=== PATIENT | female | born 2000 | race American Indian/Alaskan Native ===

== ENCOUNTER 2021-05-03 13:51 | Emergency (ER) | payer SELFPAY ==
--- NOTE | 2021-05-03 14:30 | Emergency Department Report ---
ED Male HPI - General Chief complaint: Urogenital-Male Stated complaint: EAR SWELLING - History of Present Illness MD Complaint: penile discharge, dysuria - Related Data Allergies Allergy/AdvReac Type Severity Reaction Status Date / Time aspirin Allergy Hives Verified 05/03/21 14:10 ED Review of Systems ROS: Stated complaint: EAR SWELLING Other details as noted in HPI ED Past Medical Hx - Past Medical History Previous Medical History?: No - Surgical History Past Surgical History?: No Critical care attestation.: If time is entered above; I have spent that time in minutes in the direct care of this critically ill patient, excluding procedure time. ED Disposition Clinical Impression: Exposure to STD Disposition: MED SCREENING EXAM-LEFT Is pt being admited?: No Does the pt Need Aspirin: No Condition: Stable Instructions: Safe Sex, Chlamydia, Male, Gonorrhea, Chlamydia Test Additional Instructions: FOLLOW UP WITH THE [facility] FOR FURTHER EVALUATION AND TREATMENT. RETURN TO THE ED IMMEDIATELY IF SYMPTOMS GET WORSE Referrals: [facility] [Outside] - 3-5 Days [facility] [Provider Group] - 3-5 Days Time of Disposition: 14:28 Print Language: AZERI
[2021-05-03] MEDS ORDERED: LIDOCAINE (1%) 10 MG/1 ML VIAL 20 ML MDV INFILTRATI ONE (15:15)
--- NOTE | 2021-05-03 15:45 | Emergency Department Report ---
ED General Adult HPI - General Chief complaint: Earache Stated complaint: EAR SWELLING Source: patient Mode of arrival: Ambulatory Limitations: No Limitations - History of Present Illness Initial comments: Patient is a nulliparous 21-year-old -[place] female with no past medical history presents to the ED with complaint of acute onset painful swollen maculopapular rash in the left earlobe for the last 2 days. Patient states that in the last 12 hours, the pain and the swelling has worsened. Patient denies hearing loss, fever, chills, traumatic injury, chest pain, shortness of breath, nausea and vomiting, nasal and sinus congestion, cough, neck pain, chest pain or shortness of breath. MD Complaint: swollen painful left earlobe rash -: Sudden, days(s) (2) Location: face (Left earlobe) Radiation: non-radiation Severity scale (0 -10): 7 Quality: aching, sharp Consistency: constant Improves with: none Worsens with: none Associated Symptoms: denies other symptoms, rash (Swollen, painful maculopapular rash on left earlobe). denies: confusion, chest pain, cough, diaphoresis, fever/chills, headaches, loss of appetite, malaise, nausea/vomiting, seizure, shortness of breath, syncope Treatments Prior to Arrival: none - Related Data Previous Rx's Medication Instructions Recorded Last Taken Type Ibuprofen [Motrin] 600 mg PO Q8H PRN #20 tablet 05/03/21 Unknown Rx Sulfamethoxazole/Trimethoprim 1 each PO Q12H #20 tablet 05/03/21 Unknown Rx [Bactrim DS TAB] Allergies Allergy/AdvReac Type Severity Reaction Status Date / Time No Known Allergies Allergy Unverified 05/03/21 15:12 ED Review of Systems ROS: Stated complaint: EAR SWELLING Other details as noted in HPI Constitutional: denies: chills, fever Eyes: denies: eye pain, eye discharge, vision change ENT: ear pain (painful swollen left earlobe rash). denies: throat pain Respiratory: denies: cough, shortness of breath, wheezing Cardiovascular: denies: chest pain, palpitations Endocrine: no symptoms reported Gastrointestinal: denies: abdominal pain, nausea, diarrhea Genitourinary: denies: urgency, dysuria, discharge Musculoskeletal: denies: back pain, joint swelling, arthralgia Skin: rash (swollen painful maculopapular rash on left earlobe). denies: lesions Neurological: denies: headache, weakness, paresthesias Psychiatric: denies: anxiety, depression Hematological/Lymphatic: denies: easy bleeding, easy bruising ED Past Medical Hx - Past Medical History Previous Medical History?: No - Surgical History Past Surgical History?: No - Social History Smoking Status: Never Smoker Substance Use Type: None - Medications Home Medications: Home Medications Medication Instructions Recorded Confirmed Last Taken Type Ibuprofen [Motrin] 600 mg PO Q8H PRN #20 tablet 05/03/21 Unknown Rx Sulfamethoxazole/Trimethoprim 1 each PO Q12H #20 tablet 05/03/21 Unknown Rx [Bactrim DS TAB] ED Physical Exam - General Limitations: No Limitations General appearance: alert, in no apparent distress - Head Head exam: Present: atraumatic, normocephalic - Eye Eye exam: Present: normal appearance, PERRL, EOMI Pupils: Present: normal accommodation - ENT ENT exam: Present: normal orophraynx, mucous membranes moist, TM's normal bilaterally, other (Swollen tender maculopapular fluctuant rash on left earlobe) - Neck Neck exam: Present: normal inspection, full ROM - Respiratory Respiratory exam: Present: normal lung sounds bilaterally. Absent: respiratory distress, wheezes, rales, rhonchi, chest wall tenderness, accessory muscle use, prolonged expiratory - Cardiovascular Cardiovascular Exam: Present: regular rate, normal rhythm, normal heart sounds. Absent: systolic murmur, diastolic murmur, rubs, gallop - GI/Abdominal GI/Abdominal exam: Present: soft, normal bowel sounds. Absent: tenderness, guarding, rebound, hyperactive bowel sounds, organomegaly - Extremities Exam Extremities exam: Present: normal inspection, full ROM, normal capillary refill - Back Exam Back exam: Present: normal inspection, full ROM. Absent: tenderness, CVA tenderness (R), CVA tenderness (L), muscle spasm, paraspinal tenderness, vertebral tenderness - Neurological Exam Neurological exam: Present: alert, oriented X3, CN II-XII intact, normal gait, reflexes normal - Psychiatric Psychiatric exam: Present: normal affect, normal mood - Skin Skin exam: Present: warm, dry, intact, normal color, rash (swollen tender fluctuant maculopapular rash on left earlobe) - I & D Left Ear Type of Procedure: Simple Site: Left earlobe Blade Size: 22-gauge needle I & D Procedure: betadine prep, sterile drapes applied Progress: The area was cleaned thoroughly with normal saline and Betadine solution, lidocaine 1% solution was infiltrated in the area for local anesthesia. The rash was then aspirated with 22-gauge needle and approximately 10 cc of serosanguineous fluid was aspirated from the area. Patient tolerated procedure well. On reevaluation, patient pain is well controlled medication. The area was cleaned thoroughly with normal saline and the wound dressed appropriately. Patient was discharged home on pain medications and antibiotics and advised to follow-up with her primary care physician in 5 to 7 days for reevaluation or return to the ED immediately if symptoms get worse. ED Medical Decision Making - Medical Decision Making This is a nulliparous 21-year-old -[place] female with no past medical history presents to the ED with complaint of acute onset painful swollen maculopapular rash in the left earlobe for the last 2 days. Patient states that in the last 12 hours, the pain and the swelling has worsened. In the ED, patient is alert and oriented x3 and is not in any distress. The left earlobe swollen fluctuant maculopapular rash was aspirated with a 22-gauge needle after the area was anesthetized with lidocaine 1% solution. Patient tolerated procedure well. Approximately 10 cc of serosanguineous fluid was aspirated from the left earlobe fluctuant rash. The wound was then cleaned thoroughly and dressed appropriately. The patient was discharged home on pain medications and prophylactic antibiotics and advised to follow-up with her primary care physician in 5 to 7 days for reevaluation or return to the ED immediately if symptoms get worse. - Differential Diagnosis Cellulitis; folliculitis; traumatic injury; contusion; abscess Critical care attestation.: If time is entered above; I have spent that time in minutes in the direct care of this critically ill patient, excluding procedure time. ED Disposition Clinical Impression: Infection of left earlobe, Cellulitis of tragus of left ear Disposition: TO HOME OR SELFCARE Is pt being admited?: No Does the pt Need Aspirin: No Condition: Stable Instructions: Cellulitis, Adult, [id number] Additional Instructions: Take medication with food, drink plenty of fluids and follow-up with your primary care physician in 5 to 7 days for reevaluation. Return to the ED immediately if symptoms get worse. Prescriptions: Sulfamethoxazole/Trimethoprim [Bactrim DS TAB] 1 each PO Q12H #20 tablet Ibuprofen [Motrin] 600 mg PO Q8H PRN #20 tablet PRN Reason: Pain Referrals: [facility] [Provider Group] - 3-5 Days Time of Disposition: 15:42 Print Language: ICELANDIC
[2021-05-03 16:18] VITALS: BP 124/71
== END 2021-05-03 16:11 | disposition home or self-care (01) ==
LOC: ED 13:51
DX: H60.12 Cellulitis of left external ear (principal); Z79.899 Other long term (current) drug therapy
CPT/HCPCS: 99282